=== PATIENT | female | born 1980 | race Caucasian/White ===

== ENCOUNTER 2019-10-11 22:55 | Emergency (ER) | payer SELFPAY ==
--- NOTE | 2019-10-12 00:38 | RADIOLOGY REPORT (SQ) ---
EXAM DESCRIPTION: XR KNEE 4 OR MORE VIEWS COMPLETED DATE/TME: 10/11/2019 23:22 CLINICAL HISTORY: 39 years, Female, fall injury COMPARISON: None. NUMBER OF VIEWS: 4 TECHNIQUE: 4 view right knee LIMITATIONS: None. FINDINGS: Negative for acute fracture or dislocation. Soft tissues are unremarkable IMPRESSION: Negative exam copyright 2011 [employer]- All Rights Reserved
[2019-10-12] MEDS ORDERED: HYDROCODONE/ACETAMINOPHEN 5-325 MG TABLET PO ONE ×2 (00:56)
[2019-10-12] MEDS ORDERED: HYDROCODONE/ACETAMINOPHEN 5-325 MG (6 TAB/ER DISP) PO PRN (00:57)
--- NOTE | 2019-10-12 00:59 | ER Document Report ---
ED General - General Chief Complaint: Knee Injury Stated Complaint: RIGHT KNEE PAIN Time Seen by Provider: 10/12/19 00:38 Mode of Arrival: Medic Information source: Patient TRAVEL OUTSIDE OF THE [place] IN LAST 30 DAYS: No - HPI Onset: Other - earlier in the day Onset/Duration: Sudden Quality of pain: Pressure, Throbbing Severity: Moderate Pain Level: 4 Associated symptoms: Other - patient feels her right knee is not stable Exacerbated by: Movement - of right knee, Other - weight bearing on right leg, flexing right knee Relieved by: Remaining still Similar symptoms previously: No Recently seen / treated by doctor: No Notes: 39 year old female with no significant PMH here in the ER for right knee pain and instability after an injury. The patient says she slipped on a tile floor and her right knee bent backwards and inwards. The patient says she is no longer able to weight bear with her right leg and her right leg feels unstable to her. The patient says she heard a pop when she fell. The patient says extending her knee makes the pain worse. - Related Data Allergies/Adverse Reactions: onion Allergy (Verified 10/11/19 23:26) topiramate [From Topamax] Allergy (Verified 10/11/19 23:26) zolpidem [From Ambien] Allergy (Verified 10/11/19 23:26) Past Medical History - General Information source: Patient - Social History Smoking Status: Current Every Day Smoker Frequency of alcohol use: None Drug Abuse: None Lives with: Family Family History: Reviewed & Not Pertinent Patient has suicidal ideation: No Patient has homicidal ideation: No Review of Systems - Review of Systems Constitutional: No symptoms reported EENT: No symptoms reported Cardiovascular: No symptoms reported Respiratory: No symptoms reported Gastrointestinal: No symptoms reported Genitourinary: No symptoms reported Female Genitourinary: No symptoms reported Musculoskeletal: Joint pain, Joint swelling, Other - Right knee pain and swelling. Inability to weight bear on right leg. Right knee feels unstable. Skin: No symptoms reported Hematologic/Lymphatic: No symptoms reported Neurological/Psychological: No symptoms reported -: Yes All other systems reviewed and negative Physical Exam - Vital signs Vitals: Temp 97 F L 10/11/19 23:21 - Notes Notes: GENERAL: Well-appearing, well-nourished and in no acute distress. HEAD: Atraumatic, normocephalic. EYES: Pupils equal round and reactive to light, extraocular movements intact, sclera anicteric, conjunctiva are normal. ENT: External ears normal, nares patent, oropharynx clear without exudates. Moist mucous membranes. NECK: Normal range of motion, supple without lymphadenopathy or JVD. LUNGS: Breath sounds clear to auscultation bilaterally and equal. No wheezes rales or rhonchi. HEART: Regular rate and rhythm without murmurs, rubs or gallops. ABDOMEN: Soft, nontender, normoactive bowel sounds. No guarding, no rebound. No masses appreciated. EXTREMITIES: Right knee has laxity to it seems to fail the posterior drawer test. Patient has pain with movement of her knee in any direction on exam and she is holding it in a slightly flexed postion. 2+ DP and PT pulses. No pitting or edema. No clubbing or cyanosis. NEUROLOGICAL: Cranial nerves II through XII grossly intact. Normal speech, normal gait. PSYCH: Normal mood, normal affect. SKIN: Warm, Dry, normal turgor, no rashes or lesions noted. Course - Re-evaluation Re-evalutation: 10/12/19 01:10 The patient likely tore ligaments in her right knee. Her right knee has a laxity to it and I am able to push her knee backwards some. Xrays show no fractures. Patient placed in a knee immobilizer and she was given crutches. Patient informed she needs to follow up with an Orthopedic Surgeon and that she will need an MRI. Patient is from out of town so she told me she would not be following up locally. - Vital Signs Vital signs: Temp Pulse Resp BP Pulse Ox 98.5 F 112 H 15 128/83 H 98 10/11/19 23:31 10/11/19 23:31 10/11/19 23:31 10/11/19 23:31 10/11/19 23:31 - Diagnostic Test Radiology reviewed: Image reviewed, Reports reviewed Discharge - Discharge Clinical Impression: Knee pain, right Qualifiers: Chronicity: acute Qualified Code(s): M25.561 - Pain in right knee Condition: Stable Disposition: HOME, SELF-CARE Instructions: Use of Crutches ([facility]), Ice & Elevation ([facility]), Suspected Internal Knee Injury ([facility]), Knee Immobilizing Splint ([facility]), Oral Narcotic Medication ([facility]) Additional Instructions: Follow up with an Orthopedic Surgeon such as Dr. Ruiz. Use crutches and do not weight bear on your right leg. Keep the knee immobilizer on until seen by an Orthopedic Surgeon. You likely have a ligamentous injury of your right knee so you will need an MRI. You had Xrays in this ER showing no fractures.
[2019-10-12 01:53] VITALS: BP 116/70
== END 2019-10-12 01:51 | disposition home or self-care (01) ==
LOC: ER 22:55
DX: S89.91XA Unspecified injury of right lower leg, initial encounter (principal); M25.561 Pain in right knee; W01.0XXA Fall on same level from slipping, tripping and stumbling without subsequent striking against object, initial encounter; Z88.8 Allergy status to other drugs, medicaments and biological substances; F17.200 Nicotine dependence, unspecified, uncomplicated
CPT/HCPCS: 99283